=== PATIENT | female | born 1990 | race Caucasian/White ===

== ENCOUNTER 2018-07-29 11:39 | Emergency (ER) | payer OTHER ==
[2018-07-29 12:22] LABS: #Basophils 0.1 thou/uL (0.0-0.2); #Eosinphils 0.1 thou/uL (0.0-0.7); #Lymphocytes 1.3 thou/uL (1.20-3.40); #Monocytes 0.5 thou/uL (0.11-0.59); #Neutrophils 9.6 thou/uL (1.40-6.50); %Basophils 0.5 % (0.0-1.0); %Eosinophils 0.6 % (0.0-10.0); %Lymphocytes 11.3 % (21.0-51.0); %Monocytes 4.1 % (0.0-10.0); %Neutrophils 83.6 % (42.0-75.0); Hemoglobin 13.8 g/dL (12.0-16.0); Mean Corpuscular HGB CONC 31.9 g/dL (32.0-36.0); Mean Corpuscular Hemoglobin 27.9 pg (27.0-31.0); Mean Corpuscular Volume 87.4 fL (78.0-98.0); Mean Platelet Volume 8.4 fL (7.4-10.4); Platelet Count 328 thou/uL (130-400); Red Blood Cell (RBC) Count 4.96 mill/uL (4.20-5.40); White Blood Cell (WBC) Count 11.5 thou/uL (4.8-10.8)
[2018-07-29 12:26] LABS: Bilirubin Negative (Negative); Blood, Urine Trace (Negative); Clarity CLEAR (Clear); Glucose, Urine (Dipstick) Negative (Negative); Leukocyte Negative (Negative); Nitrite Negative (Negative); Protein, Urine (Dipstick) Negative (Neg-Trace); Specific Gravity, Urine 1.022 (1.002-1.036); pH, Urine 7.5 (5.0-9.0)
[2018-07-29 12:29] LABS: Bacteria/HPF None Seen HPF (None Seen); Hyaline Casts/LPF 0-3 HYALINE CAST LPF (0-3 Hyaline); Pathc Cast-AUWi Flag 0.72 (0-2.49); Squamous Epithelial 0-3 HPF (0-3); WBC/HPF 0-3 HPF (0-3)
[2018-07-29] MEDS ORDERED: Ondansetron ODT 4 MG TAB ONE (12:31)
[2018-07-29 12:32] LABS: Pregnancy Test - Urine (BHCG) Negative (Negative); Pregu Control Background? CLEAR/WHITE (CLR/WHITE); Pregu Control Bar Appear? YES (CONTROL BAR); Renal Epithelial None Seen HPF (0-3); Specific Gravity 1.022 (1.002-1.036); Transitional Epithelial NONE SEEN HPF (0-3)
[2018-07-29 12:33] LABS: BHCG - Serum Negative (NEGATIVE)
[2018-07-29 12:34] LABS: Pregs Control Background? CLEAR/WHITE (CLR/WHITE); Pregs Control Bar Appear? YES (CONTROL BAR)
[2018-07-29 12:44] LABS: ALT (SGPT) 17 U/L (8-55); AST (SGOT) 16 U/L (5-34); Albumin 4.8 g/dL (3.5-5.0); Alkaline Phosphatase 95 U/L (40-150); Anion Gap 14 mmol/L (10-20); BUN (Urea Nitrogen) 9 mg/dL (7.0-18.7); Bilirubin, Total 0.4 mg/dL (0.2-1.2); Calc. Creatinine Clearance 0 mL/min (70-130); Carbon Dioxide 23 mmol/L (22-29); Chloride 103 mmol/L (98-107); Estimated GFR-MDRD 82; Globulin 3.6 g/dL (2.4-3.5); Glucose 84 mg/dL (70-105); Lipase 24 U/L (8-78); Potassium 3.7 mmol/L (3.5-5.1); Protein, Total 8.4 g/dL (6.0-8.3); Sodium 136 mmol/L (136-145)
--- NOTE | 2018-07-29 13:30 | ULT ---
ULTRASOUND ABDOMEN LIMITED: (RIGHT UPPER QUADRANT) HISTORY: A 28-year-old female with right upper quadrant abdominal pain. FINDINGS: The gallbladder has normal wall thickness and has no evidence of gallstones or sludge. The hepatic e chogenicity is normal. The right kidney has normal echogenicity and has no hydronephrosis. The panc reas is visualized, although ultrasound is relatively insensitive for pancreatic pathology compared t o CT and MRI. There is no biliary dilation. The common duct caliber is 4 mm. IMPRESSION: Normal. patrizia [] POS: TERESA
[2018-07-29] MEDS ORDERED: Pantoprazole 40 MG VIAL ONE (13:44)
[2018-07-29] MEDS ORDERED: Dicyclomine 20 MG TAB ONE (13:44)
[2018-07-29] MEDS ORDERED: Metoclopramide HCl 10 MG/2 ML VIAL ONE (14:41)
== END 2018-07-29 16:34 | disposition home or self-care (01) ==
LOC: ERS 11:39
DX: R11.2 Nausea with vomiting, unspecified (principal); R10.13 Epigastric pain; J21.9 Acute bronchiolitis, unspecified; G47.30 Sleep apnea, unspecified; F41.9 Anxiety disorder, unspecified; F32.9 Major depressive disorder, single episode, unspecified; F17.210 Nicotine dependence, cigarettes, uncomplicated; Z79.899 Other long term (current) drug therapy
CPT/HCPCS: 36415; 76705; 80053; 81003; 81015; 81025; 83690; 84703; 85025; 96361; 96365; 96375; C9113; J2765; Q0162

== ENCOUNTER 2018-12-19 10:15 | Day surgery (SDC) | payer OTHER ==
[2018-12-18 08:59] VITALS: BMI 34.1
--- NOTE | 2018-12-19 08:04 | HP ---
HISTORY OF PRESENT ILLNESS: This is a 28-year-old female referred to me for abdominal pain, abdominal swelling, diarrhea, and epigastric pain. Her symptoms are chronic in nature. The patient has had the symptoms for over the last several months and has been dating back for many years. Her reflux is getting worse. Stools are watery and she had no nocturnal diarrhea. No history of fever. No history of hematochezia. However, she has had a history of erosive esophagitis and bleeding ulcer many years ago. The patient comes to the ED for abdominal pain, chronic reflux and for a colonoscopy because of abdominal pain, diarrhea, abdominal bloating. ALLERGIES: NONE. SOCIAL HISTORY: The patient smokes occasional cigarettes. Drinks socially. MEDICAL ILLNESSES: 1. Depression. 2. Anxiety. 3. Obesity. 4. Sleep apnea. 5. Prediabetes. 6. Narcolepsy. 7. Allergic rhinitis. MENSTRUAL HISTORY: Cycles are irregular. LMP, 5 days ago. PHYSICAL EXAMINATION: GENERAL: She is obese, appears comfortable. VITAL SIGNS: Pulse is 70, blood pressure 130/70. HEENT: Conjunctivae clear. CARDIOVASCULAR: First and second heart sounds heard. LUNGS: Clear to auscultation. ABDOMEN: Soft. No organomegaly. Abdomen is tender across the lower abdomen and epigastric area. There is no rebound or guarding. EXTREMITIES: Reveal no edema. ADMITTING DIAGNOSES: Abdominal pain, diarrhea, chronic reflux. PLAN: EGD and colonoscopy. Job ID: [id number] [facility]
[2018-12-19 11:23] LABS: BHCG - Serum Negative (NEGATIVE); Pregs Control Background? CLEAR/WHITE (CLR/WHITE); Pregs Control Bar Appear? YES (CONTROL BAR)
--- NOTE | 2018-12-19 13:05 | OP ---
DATE OF PROCEDURE: 12/19/2018 OPERATIVE PROCEDURE: Ileocolonoscopy. PREOPERATIVE DIAGNOSES: Abdominal cramping and diarrhea. POSTOPERATIVE DIAGNOSIS: Normal exam. DESCRIPTION OF PROCEDURE: The patient was placed on her left lateral position and was given sedation by Anesthesia Department. A rectal exam was done before the scope was advanced into the rectum. No lesions felt on rectal exam. A Pentax videocolonoscope was introduced into the rectum and advanced all the way to the cecum. The prep was good except for small amount of fecal residue. The mucosa appears normal throughout the colon, nonvascular pattern. The appendiceal orifice, ileocecal wall, and cecum, no pathology. The scope advanced to ileum. The ileal mucosa appeared normal. I withdrew the scope in the cecum, ascending colon, hepatic flexure, transverse colon, and splenic flexure, no pathology seen. The descending colon, sigmoid colon, and rectum, no lesion seen. Job ID: [id number]
--- NOTE | 2018-12-19 15:49 | OP ---
DATE OF PROCEDURE: 12/19/2018 PROCEDURE PERFORMED: Esophagogastroduodenoscopy with biopsy. PREOPERATIVE DIAGNOSIS: Abdominal pain, chronic reflux. POSTOPERATIVE DIAGNOSIS: Normal exam. Biopsies obtained in the descending duodenum to rule out celiac disease. DESCRIPTION OF PROCEDURE: The patient was placed on her left lateral position and was given sedation by Anesthesia Department. A Pentax video gastroscope under direct vision was passed down the oropharynx past the GE junction into the stomach and subsequently into the descending duodenum. The esophageal mucosa appeared normal throughout. The GE junction, no pathology seen. Retroflexion of the scope in the stomach failed to show any pathology in the fundus and cardia. The gastric body and gastric antrum, no pathology. The incisura angularis, no lesions. The scope advanced into the duodenal bulb, descending duodenum. No pathology seen. Random biopsies obtained in the descending duodenum. The stomach decompressed and the scope removed. DISCHARGE PLANNING: This is a 28-year-old female came with abdominal pain, abdominal bloating, chronic diarrhea. The EGD showed no pathology. Colonoscopy was also negative. Based on negative findings, I feel that she most likely has IBS... We will treat the patient with, 1. Bentyl 10 mg p.o. three times a day. 2. Metamucil once a day. 3. We will come back to clinic in 2 weeks. Job ID: [id number] [facility]
[2018-12-19] MEDS ORDERED: PROPOFOL 200 MG/20 ML VIAL ONE (15:59)
== END 2018-12-19 13:30 | disposition home or self-care (01) ==
LOC: SDC 10:15
PROVIDERS: ATTEND Internal Medicine Gastroenterology
PROC: 0DB98ZX Excision of Duodenum, Via Natural or Artificial Opening Endoscopic, Diagnostic (ICD-10-PCS; principal; 2018-12-19)
PROC: 0DJD8ZZ Inspection of Lower Intestinal Tract, Via Natural or Artificial Opening Endoscopic (ICD-10-PCS; principal; 2018-12-19)
DX: K52.9 Noninfective gastroenteritis and colitis, unspecified (principal); R10.13 Epigastric pain; F17.210 Nicotine dependence, cigarettes, uncomplicated; F32.9 Major depressive disorder, single episode, unspecified; F41.9 Anxiety disorder, unspecified; G47.30 Sleep apnea, unspecified; J30.9 Allergic rhinitis, unspecified; K21.9 Gastro-esophageal reflux disease without esophagitis; G25.81 Restless legs syndrome; F41.1 Generalized anxiety disorder; E66.9 Obesity, unspecified; Z68.34 Body mass index [BMI] 34.0-34.9, adult; Z79.899 Other long term (current) drug therapy
CPT/HCPCS: 36415; 84703; 88305; J2704

== ENCOUNTER 2018-12-26 19:30 | Outpatient (CLI) | payer OTHER | END 2018-12-26 19:31 | disposition home or self-care (01) | LOC: SLEEPLAB 19:30 | PROVIDERS: ATTEND Radiology Radiation Oncology | DX: G47.33 Obstructive sleep apnea (adult) (pediatric) (principal); G47.419 Narcolepsy without cataplexy | CPT/HCPCS: 95811 ==

== ENCOUNTER 2019-01-01 09:51 | Day surgery (SDC) | payer OTHER ==
[2018-12-31 15:02] VITALS: BMI 34.2
[2019-01-01] MEDS ORDERED: Lidocaine 1% w/Epinephrine 1:100K 20 ML VIAL ONE (11:30)
[2019-01-01] MEDS ORDERED: Oxymetazoline HCl 0.05% ( 15 ML ) ONE ×2 (11:30→14:39)
[2019-01-01] MEDS ORDERED: Fentanyl 100 MCG/2 ML VIAL ONE (11:43)
[2019-01-01] MEDS ORDERED: Famotidine/PF 20 mg/2ml Vial ONE (11:44)
[2019-01-01] MEDS ORDERED: Ferric Subsulfate 8 ML BOT ONE (12:03)
[2019-01-01] MEDS ORDERED: Naloxone HCl 0.4 mg/ml Vial ONE ×2 (12:19→17:08)
--- NOTE | 2019-01-01 15:18 | OP ---
DATE OF PROCEDURE: 01/01/2019 PREOPERATIVE DIAGNOSES: Chronic tonsillitis, recurrent tonsillitis with obstructive tonsillar hypertrophy, and hypertrophic inferior turbinates. POSTOPERATIVE DIAGNOSES: Chronic tonsillitis, recurrent tonsillitis with obstructive tonsillar hypertrophy, and hypertrophic inferior turbinates. PROCEDURE PERFORMED: 1. Bilateral nasal endoscopy with submucosal resection of inferior turbinates. 2. Tonsillectomy over 12. DESCRIPTION OF PROCEDURE: After consent was obtained, the patient was identified, brought to the operating room, and placed on the operating room table in the supine position. Consent was obtained, notifying the patient of the possibility of additional infections, bleeding, brain injury, and eye/orbital injury. The patient was placed on the operating room table, and general endotracheal anesthesia and intravenous access was obtained. The patient was then positioned, prepped and draped for endoscopic sinus surgery. Nasal preparation included trimming nasal vestibular hairs and spraying in topical Afrin. We then placed Afrin topical solution on nasal pledgets and strategically located them intranasally. The perinasal mucosa was injected with 1% lidocaine with 1:100,000 epinephrine in the submucoperichondrial plane of the septum, lateral nasal wall, and anterior to the uncinate. The patient was then prepped and draped in a sterile fashion and positioned for endoscopic sinus surgery. With the 0-degree endoscope, the patient underwent systematic nasal endoscopy. There were no suspicious internasal masses or lesions identified. We then focused our attention to the osteomeatal complex region under the middle turbinate. The inferior turbinates were visualized with a 0 degree endoscope and outfractured with a Tappen elevator. The inferior medial aspect was cauterized with the electrocautery. Hemostasis was obtained . After adequate airway was established, we turned our attention to the contralateral side and used a similar procedure. Again, a Earl elevator was used to outfracture inferior turbinates under endoscopic visualization. With a suction cautery, the free inferior medial aspect was cauterized under direct visualization along the length of the inferior turbinate. At this point, we then turned our attention to the contralateral side and proceeded with endoscopic sinus surgery. At the completion of the case, Rice keel splints were placed in the ethmoid cavities after the ethmoidectomy. There were no complications. The patient tolerated the procedure well and was discharged to the recovery room in stable condition prior to return to the preoperative day stay with ultimate discharge home. Prescriptions for pain medication and antibiotics were provided. The patient received intramuscular Depo-Medrol during the case. After consent was obtained, the patient was identified, brought to the operating room, and placed on the operating table in the supine position. General endotracheal anesthesia and intravenous access was obtained and we proceeded with positioning the patient for oropharyngeal surgery. Oropharyngeal exposure was obtained with a Dagmar-Sherman mouth gag after a head drape was placed and secured with a towel clip. The Dagmar-Sherman mouth gag was then suspended from the Blackwood tray and palatal elevation was achieved with a red rubber catheter. The right tonsil was addressed first. We used a curved Allis to grasp the tonsil and retract it medially as an anterior pillar incision was made with a #12 blade. The retrotonsillar fascial plane was then established and blunt dissection was performed with the suction cautery. Blood vessels were anticipated, identified, and cauterized as they were encountered. Ultimately, dissection was carried to the posterior tonsillar pillar mucosa which was incised hemostatically, as well as the base of tongue connection. The tonsil was then passed off as a specimen and bleeding points within the tonsillar bed were cauterized under direct visualization. We subsequently turned our attention to the contralateral side, where using a similar technique, a near identical procedure was performed. Again, the tonsil was grasped and retracted medially with a curved Allis as an anterior pillar incision was made with a #12 blade. The retrotonsillar fascial plane was established and while the anterior pillar was retracted medially, the hemostatic blunt dissection of the tonsil with a suction cautery was performed with blood vessels anticipated, identified, and cauterized as they were encountered. Again, dissection continued to the base of tongue and posterior tonsillar pillar mucosa which was incised in a hemostatic fashion. The tonsillar beds were then carefully inspected and bleeding points were identified and cauterized with a suction cautery. After this portion of the procedure, hemostasis was completely obtained. The patient's oral cavity was copiously irrigated with iced saline and subsequently suctioned. We then used the red rubber catheter to suction the gastric contents and the patient was subsequently aroused, awakened, and extubated without difficulty and transported to the recovery room in stable condition. There were no complications. Job ID: [id number]
[2019-01-01] MEDS ORDERED: Succinylcholine Chloride 20 MG/ML 10 ml SYRINGE FS ONE (17:08)
[2019-01-01] MEDS ORDERED: PROPOFOL 200 MG/20 ML VIAL ONE (17:08)
[2019-01-01] MEDS ORDERED: Dexamethasone 20 MG/5 ML VIAL ONE (17:08)
[2019-01-01] MEDS ORDERED: Ondansetron PF 4 MG/2 ML Vial ONE (17:08)
[2019-01-01] MEDS ORDERED: Lidocaine 1% PF 5 ML VIAL ONE (17:08)
== END 2019-01-01 15:15 | disposition home or self-care (01) ==
LOC: SDC 09:51
PROVIDERS: ATTEND Specialist
PROC: 09TL8ZZ Resection of Nasal Turbinate, Via Natural or Artificial Opening Endoscopic (ICD-10-PCS; principal; 2019-01-01)
PROC: 0CTPXZZ Resection of Tonsils, External Approach (ICD-10-PCS; principal; 2019-01-01)
DX: J35.01 Chronic tonsillitis (principal); J34.3 Hypertrophy of nasal turbinates
CPT/HCPCS: 36415; 85014; 88304; J0131; J1100; J2001; J2175; J2310; J2405; J2704; J3010; S0028

== ENCOUNTER 2019-01-05 18:33 | Emergency (ER) | payer OTHER ==
[2019-01-05] MEDS ORDERED: Ondansetron ODT 4 MG TAB ONE (18:53)
[2019-01-05 19:44] LABS: #Basophils 0.1 thou/uL (0.0-0.2); #Eosinphils 0.3 thou/uL (0.0-0.7); #Lymphocytes 3.2 thou/uL (1.20-3.40); #Monocytes 0.8 thou/uL (0.11-0.59); #Neutrophils 6.2 thou/uL (1.40-6.50); %Basophils 0.6 % (0.0-1.0); %Eosinophils 2.6 % (0.0-10.0); %Monocytes 7.5 % (0.0-10.0); %Neutrophils 59.2 % (42.0-75.0); Hemoglobin 12.4 g/dL (12.0-16.0); Mean Corpuscular HGB CONC 32.7 g/dL (32.0-36.0); Mean Corpuscular Hemoglobin 28.6 pg (27.0-31.0); Mean Corpuscular Volume 87.5 fL (78.0-98.0); Mean Platelet Volume 8.7 fL (7.4-10.4); Platelet Count 327 thou/uL (130-400); RBC Distribution Width 13.1 % (11.5-14.5); Red Blood Cell (RBC) Count 4.33 mill/uL (4.20-5.40); White Blood Cell (WBC) Count 10.5 thou/uL (4.8-10.8)
== END 2019-01-05 20:09 | disposition home or self-care (01) ==
LOC: ERS 18:33
DX: J95.831 Postprocedural hemorrhage of a respiratory system organ or structure following other procedure (principal); K21.9 Gastro-esophageal reflux disease without esophagitis; G47.30 Sleep apnea, unspecified; F41.9 Anxiety disorder, unspecified; F32.9 Major depressive disorder, single episode, unspecified; Z87.891 Personal history of nicotine dependence; Z79.899 Other long term (current) drug therapy
CPT/HCPCS: 36415; 85025; 99283; Q0162

== ENCOUNTER 2020-02-15 15:19 | Outpatient (CLI) | payer OTHER ==
[2020-02-16 12:24] LABS: SARS-CoV-2 MS2 Positive; SARS-CoV-2 N Gene Negative; SARS-CoV-2 S Gene Negative; SARS-CoV-2 orf1ab Negative
== END 2020-02-15 15:20 | disposition home or self-care (01) ==
LOC: SCSLAB 15:19
PROVIDERS: ATTEND Radiology Radiation Oncology
DX: Z01.812 Encounter for preprocedural laboratory examination (principal); Z11.59 Encounter for screening for other viral diseases
CPT/HCPCS: 87635; U0003

== ENCOUNTER 2020-02-17 19:00 | Outpatient (CLI) | payer OTHER | END 2020-02-17 19:01 | disposition home or self-care (01) | LOC: SLEEPLAB 19:00 | PROVIDERS: ATTEND Hospitalist | DX: G47.33 Obstructive sleep apnea (adult) (pediatric) (principal); I10 Essential (primary) hypertension; G47.10 Hypersomnia, unspecified; G47.00 Insomnia, unspecified; G47.61 Periodic limb movement disorder | CPT/HCPCS: 95810 ==

== ENCOUNTER 2020-03-15 19:00 | Outpatient (CLI) | payer OTHER | END 2020-03-15 19:01 | disposition home or self-care (01) | LOC: SLEEPLAB 19:00 | PROVIDERS: ATTEND Hospitalist | DX: G47.33 Obstructive sleep apnea (adult) (pediatric) (principal); G47.10 Hypersomnia, unspecified; R06.83 Snoring; E66.9 Obesity, unspecified; Z68.34 Body mass index [BMI] 34.0-34.9, adult | CPT/HCPCS: 95811 ==

== ENCOUNTER 2021-09-26 15:25 | Outpatient (CLI) | payer OTHER | END 2021-09-26 15:26 | disposition home or self-care (01) | LOC: BICRAD 15:25 | PROVIDERS: ATTEND Dermatology | DX: L73.2 Hidradenitis suppurativa (principal); Z79.899 Other long term (current) drug therapy | CPT/HCPCS: 71046 ==

== ENCOUNTER 2023-05-14 17:00 | Outpatient (CLI) | payer OTHER | END 2023-05-14 17:01 | disposition home or self-care (01) | LOC: SLEEPLAB 17:00 | PROVIDERS: ATTEND Student in an Organized Health Care Education/Training Program | DX: G47.33 Obstructive sleep apnea (adult) (pediatric) (principal); G47.00 Insomnia, unspecified; R06.83 Snoring; F32.A Depression, unspecified; E66.9 Obesity, unspecified; R53.83 Other fatigue | CPT/HCPCS: 95810 ==

== ENCOUNTER 2024-02-04 16:00 | Outpatient (CLI) | payer OTHER | END 2024-02-04 16:01 | disposition home or self-care (01) | LOC: SLEEPLAB 16:00 | PROVIDERS: ATTEND Internal Medicine Critical Care Medicine | DX: G47.33 Obstructive sleep apnea (adult) (pediatric) (principal); G47.10 Hypersomnia, unspecified | CPT/HCPCS: 95811 ==

== ENCOUNTER 2024-02-05 16:00 | Outpatient (CLI) | payer OTHER | END 2024-02-05 16:01 | disposition home or self-care (01) | LOC: SLEEPLAB 16:00 | PROVIDERS: ATTEND Internal Medicine Critical Care Medicine | DX: G47.33 Obstructive sleep apnea (adult) (pediatric) (principal); R06.83 Snoring; G47.10 Hypersomnia, unspecified; G47.00 Insomnia, unspecified; G47.411 Narcolepsy with cataplexy | CPT/HCPCS: 95805 ==